=== PATIENT | female | born 1975 | race Caucasian/White ===

== ENCOUNTER 2018-01-14 23:35 | Emergency (ER) | payer MEDICAID ==
[~2018-01-14] VITALS: Ht 152.4 cm; Wt 59.6 kg
[2018-01-14 23:42] VITALS: Ht 152.4 cm; Wt 59.6 kg
[2018-01-15 01:12] VITALS: BP 131/72
== END 2018-01-15 01:12 | disposition home or self-care (01) ==
LOC: ED 23:35
DX: K08.89 Other specified disorders of teeth and supporting structures (principal); Z98.818 Other dental procedure status